=== PATIENT | male | born 2005 | race Caucasian/White ===

== ENCOUNTER 2025-07-27 10:05 | Emergency (ER) | payer OTHER, SELFPAY ==
--- NOTE | 2025-07-27 10:06 | ED_ITS ---
HPI - General Adult General Chief complaint: Skin/Abscess/Foreign Body Stated complaint: skin lesion on right wrist Time Seen by Provider: 07/27/25 10:38 Source: patient and RN notes reviewed Mode of arrival: ambulatory Limitations: no limitations History of Present Illness HPI narrative: 20-year-old male presents to the [facility] with a skin lesion to his right wrist since April. Patient reports that started what he thought was a bug bite and just has not gotten better. No redness. No drainage. Onset (ago): month(s) (3) Treatments prior to arrival: none Related Data Home Medications ?Medication ?Instructions ?Recorded ?Confirmed ?Last Taken ?Type No Home Medications 07/27/25 07/27/25 U nknown History Allergies Allergy/AdvReac Type Severity Reaction Status Date / Time Penicillins AdvReac Rash Verified 07/27/25 10:44 Review of Systems Review of Systems: All systems reviewed & are unremarkable except as noted in HPI and below Constitutional: Constitutional: Reports no additional constitutional complaints ENT: Reports system reviewed and no additional complaints, except as documented Cardiovascular: Cardiovascular: Reports no additional cardiovascular complaints, Denies chest pain and Denies dyspnea Respiratory: Respiratory: Reports no additional respiratory complaints, Denies chest congestion, Denies cough and Denies dyspnea Musculoskeletal: Musculoskeletal: Reports no additional musculoskeletal complaints Integumentary/Breasts: Skin/Breast: Reports as per HPI PMFSH Comments At the time of my signature, I reviewed and agree with the nursing past medical, surgical, social, and family history. There is no relevant family history pertinent to the patient complaint. Exam Const: General: cooperative, healthy appearing, comfortable, no acute distress, well developed, alert and well nourished Nutritional Appearance: well nourished Orientation/consciousness: patient oriented x3 Limitations: no limitations HENMT: Head: normal to inspection Eyes: General: appearance normal, both eyes and all related structures Alignment and Position: alignment normal Neck: Neck: normal visual inspection, full ROM, no lymphadenopathy and no meningeal signs Chest: Chest palpation & inspection: normal inspection of the chest Resp: Effort & Inspection: normal respiratory effort and able to speak in complete sentences Cardio: Rate: regular rate Skin: General skin exam: normal color and no rashes or lesions noted Lesions: lesion noted plaque right wrist size (1.2x1cm), borders irregular and surface crusted Neuro: General: patient oriented x3, gait normal, moves all extremities and no meningeal signs Cognition (Neuro): normal cognition Speech: normal speech Gait exam (Neuro): Normal gait present Extrem: General: normal to inspection, full ROM, capillary refill normal and normal gait Right upper extremity: full ROM and normal capillary refill Psych: Appearance: grossly normal and well kempt Mental Status: mental status grossly normal Speech and movement: Normal speech and movement present and Clear speech present Affect: normal affect Attitude: cooperative Course Course Level of Care: Express Care Visit Vital Signs Vital signs: Vital Signs Temperature 98.1 F 07/27/25 10:15 Pulse Rate 76 07/27/25 10:15 Respiratory Rate 14 07/27/25 10:15 Blood Pressure 135/81 07/27/25 10:15 Pulse Oximetry 100 07/27/25 10:15 Oxygen Delivery Room Air 07/27/25 10:15 Temperature 98.1 F 07/27/25 10:15 Pulse Rate 76 07/27/25 10:15 Respiratory Rate 14 07/27/25 10:15 Blood Pressure 135/81 07/27/25 10:15 Pulse Oximetry 100 07/27/25 10:15 Oxygen Delivery Room Air 07/27/25 10:15 Reviewed Medical Decision Making MDM Narrative Medical decision making narrative: Patient sitting comfortably in exam room. Nontoxic, vitals stable. Patient in no acute distress For a lesion to the right volar aspect wrist for 3 months. No signs of infection. Crusted areas noted. No drainage. Full range of motion of the wrist. Patient referred to pulse surgery and plastics for follow-up. Discharge instructions reviewed with patient, as well as provided in writing pe r nursing staff. The instructions also include specific and strict return/GO TO THE ER as well as f/u information. All questions have been answered, and the patient deny any further questions with discharge and discharge plan. Some parts of this dictation were generated by voice recognition software and may contain typographical and/or grammatical inaccuracies. Differential Diagnosis Differential Diagnosis: Cyst, psoriasis, Medical Records Medical records reviewed: Yes I reviewed the external patient's medical records. Vital Signs Vital Signs: Vital Signs Temperature 98.1 F 07/27/25 10:15 Pulse Rate 76 07/27/25 10:15 Respiratory Rate 14 07/27/25 10:15 Blood Pressure 135/81 07/27/25 10:15 Pulse Oximetry 100 07/27/25 10:15 Oxygen Delivery Room Air 07/27/25 10:15 Temperature 98.1 F 07/27/25 10:15 Pulse Rate 76 07/27/25 10:15 Respiratory Rate 14 07/27/25 10:15 Blood Pressure 135/81 07/27/25 10:15 Pulse Oximetry 100 07/27/25 10:15 Oxygen Delivery Room Air 07/27/25 10:15 Reviewed Lab Data Lab results reviewed: Yes I reviewed the patient's lab results. Labs: Reviewed Critical Care Time Critical Care Time Critical Care Time: No Discharge Plan Discharge Clinical Impression: Lesion of skin of wrist Patient Disposition: Home Condition: Stable Instructions: Cyst (ED) Additional Instructions: Follow-up with Dr. Akins's office follow-up with primary care provider Patient Language: [place]raini Prescriptions: No Action No Home Medications Follow-up/Referrals: Cristhian Akins MD [Physician, Plastic Surgery] - 1 Week Clinical Impression: Lesion of skin of wrist Aylin Martini MD [Physician, General Surgery] UNKNOWN,DOCTOR [Non-Staff] Time of Disposition: 10:46
[2025-07-27 10:15] VITALS: BP 135/81; PULSE 76; RESP 14; TEMP 36.7; O2SAT 100
== END 2025-07-27 10:52 | disposition home or self-care (01) ==
PROVIDERS: Emergency Provider Nurse Practitioner
DX: L98.9 Disorder of the skin and subcutaneous tissue, unspecified (principal)
CPT/HCPCS: 99202; G0463